=== PATIENT | female | born 1940 | race Caucasian/White ===

== ENCOUNTER → 2021-07-14 12:25 | Outpatient (CLI) | payer MEDICARE, BC, SELFPAY ==
--- NOTE | 2021-07-14 12:28 | DI.MRI.S_ITS ---
PROCEDURE: MR LUMBAR SPINE WO CON INDICATIONS: scoliosis TECHNIQUE: Noncontrast sagittal T1 spin echo and T2 fast echo, sagittal STIR, axial T1 and T2 fast spin echo through the lumbar spine. In cases with scoliosis, additional coronal T2 fast spin echo may be performed. COMPARISON: None. FINDINGS: Image quality: Excellent. Alignment and Curvature: There is moderate dextroconvex thoracolumbar scoliosis. Mild anterolisthesis is seen at the L5-S1 level. Associated pars defects are not seen. Bone Marrow: Marrow is of normal overall signal. No acute vertebral body compression fractures. Spinal Cord: Conus medullaris terminates at the L1 level. Visualized cord demonstrates normal signal and size. Paraspinous Soft Tissues: No paravertebral masses. A horseshoe kidney is incidentally noted, as on series 6, image 19. No significant hydronephrosis is seen. T12-L1: Normal appearance. L1-L2: Zlna-pl-wtddssuz loss of disc height and disc signal can be seen. Mild to moderate disc bulge is seen. Mild to moderate facet hypertrophy is seen. There is moderate left-sided and no right-sided neural foraminal narrowing seen. The central canal is widely patent. L2-L3: Usew-qf-tsbmclgu loss of disc height and disc signal can be seen. Mild generalized disc bulge is seen. Mild facet joint hypertrophy is seen. There is mild left-sided and no significant right-sided neural foraminal narrowing seen. Mild central canal narrowing is seen. L3-L4: Mild loss of disc height is seen. Loss of disc signal is seen. Mild to moderate disc bulge is seen. Mild to moderate facet hypertrophy is seen at this level. There is ivkk-en-kqjeknib right-sided and no significant left-sided neural foraminal narrowing seen. Mild to moderate central canal narrowing is seen. L4-L5: The disc height is well-preserved. Loss of disc signal is seen at this level. Mild to moderate disc bulge is seen. Moderate facet hypertrophy is seen, right worse than left. There is moderate bilateral neural foraminal narrowing seen, right worse than left. Moderate central canal narrowing is seen. L5-S1: Uktx-tm-vrbjywqp loss of disc height and disc signal can be seen. Mild to moderate disc bulge is seen, which is eccentric to the right. The there is moderate to prominent right-sided and at least moderate left-sided facet hypertrophy seen. There is moderate to severe right-sided neural foraminal narrowing, with a degree of compression seen upon the exiting right L5 nerve root. Moderate left-sided neural foraminal narrowing is seen. Moderate central canal narrowing is seen. IMPRESSION: Multiple levels of lumbar spine degenerative change are seen, which are overall worst at the L5-S1 level. Moderate dextroconvex scoliosis. Incidental note is made of: Horseshoe kidney Dictated by: Ramiro Rodrigez M.D. on 07/14/2021 at 12:36 Approved by: Ramiro Rodrigez M.D. on 07/14/2021 at 12:40
== END ==
PROVIDERS: PCP Family Medicine Sports Medicine; Referring Provider Physical Medicine & Rehabilitation; Visit Provider Physical Medicine & Rehabilitation
DX: M47.816 Spondylosis without myelopathy or radiculopathy, lumbar region (principal); M51.36 Other intervertebral disc degeneration, lumbar region; M48.061 Spinal stenosis, lumbar region without neurogenic claudication; M51.37 Other intervertebral disc degeneration, lumbosacral region; M48.07 Spinal stenosis, lumbosacral region; M41.9 Scoliosis, unspecified
CPT/HCPCS: 72148

== ENCOUNTER → 2021-08-01 10:00 | Outpatient (CLI) | payer MEDICARE, BC, SELFPAY ==
[2021-08-01 12:45] LABS: COVID19 -Nasal RAPID Negative (Negative)
== END ==
PROVIDERS: PCP Family Medicine Sports Medicine; Visit Provider Physical Medicine & Rehabilitation
DX: Z20.822 Contact with and (suspected) exposure to COVID-19 (principal)
CPT/HCPCS: 87635; C9803

== ENCOUNTER 2021-08-02 08:57 | Outpatient (CLI) | payer MEDICARE, BC, SELFPAY ==
[2021-08-02] VITALS (8 sets, daily range): BP systolic 132–180; BP diastolic 64–80; PULSE 50–73; RESP 11–25; TEMP 36.1; O2SAT 95–100
--- NOTE | 2021-08-02 08:59 | DI.RAD.S_ITS ---
PROCEDURE: PAIN L/S FACET INJ/BLK 1ST GIOVANA COMPARISON: [facility], RG, XR L-SPINE 2-3V, 06/27/2021, 10:37. [facility], MR, MR LUMBAR SPINE WO CON, 07/14/2021, 12:40. INDICATIONS: SPONDYLOSIS FINDINGS: Fluoroscopic spot filming was performed to verify placement of spinal needles on both sides at the L4-L5 and L5-S1 levels, as labeled on the films. Appropriate location of the needle tips was confirmed by injection of iodinated contrast. IMPRESSION: Intraprocedural examination within normal limits. Dictated by: Ramiro Rodrigez M.D. on 08/02/2021 at 10:11 Approved by: Ramiro Rodrigez M.D. on 08/02/2021 at 10:12
--- NOTE | 2021-08-02 10:00 | P.PCN_ITS ---
Date/Time/Diagnoses Date of procedure: 08/02/21 Time of procedure: 10:00 Pre-procedure diagnosis: 1. FACET ARTHROPATHY 2. AXIAL NECK PAIN Post-procedure diagnosis: same Procedure Notes Procedure: 1. FLUOROSCOPICALLY GUIDED, CONTRAST-CONTROLLED BILATERAL L4/5, L5/S1 FACET JOINT INJECTIONS WITH CONSCIOUS SEDATION. Indications: Marylu is referred by Dr. Hood for Chronic Axial LBP. Physician: Antoine Ferrera Total Fluoroscopy time (seconds): 10 Total sedation minutes: 13 Complications: none Procedure in detail & Post-procedure care: FINDINGS Multilevel Facet Arthropathy with Clinically significant axial LBP DESCRIPTION OF PROCEDURE Fluoroscopically guided, contrast-controlled bilateral L4/5, L5/S1 facet joint injections. Following review of allergy and review of potential side effects and complications, including, but not necessarily limited to, infection, allergic reaction, local tissue breakdown, stroke, temporary or permanent nerve injury, paralysis, and possible , the patient indicated that the patient understood and agreed to proceed. An informed consent document was signed by the patient, witnessed by a nurse, and placed in the patient's chart. Additionally, other treatment options including medications, modalities, and physical therapy were reviewed with the patient. After review of previous anaesthesic history and IV conscious sedation the patient was deemed safe to proceed with today?s procedure with IV conscious sedation as ASA class II designation. Safety time-out was performed to confirm patient ID, procedure to be performed and site of procedure. IV sedation was accomplished with a combination of 2mg of Versed and 50mcg of Fentanyl was administered by the RN after DO order, titrated to patient comfort during the course of the procedure while the patient remained responsive to all verbal commands In the prone position, following sterile prep and drape of the lumbar region, the posterior aspect of the L4/5, L5/S1 facet joints were identified fluoroscopically. The skin was anesthetized via a 25-gauge 1.5inch needle with 1% lidocaine solution into the corresponding facet joints. At this point, a 22- gauge 3.5-inch spinal needle was atraumatically introduced and advanced under fluoroscopic guidance into the corresponding facet joints. Following negative aspiration, injections of approximately 0.2cc of Isovue 200 confirmed in terarticular placement without vascular uptake. The identical procedure was then performed at the L4/5, L5/S1 facet joints on the left. Radiological data, including multiple fluoroscopic views of the lumbosacral spine, reveal a spinal needle at the L4/5, L5/S1 facet joints bilaterally. Subsequent views show flow of contrast material both superiorly and inferiorly within the joint space without vascular or intrathecal uptake. At this point, a total of 0.5cc including a mixture of 0.25cc Marcaine and 0.25cc betamethasone was injected without complication into each of the corresponding facet joints. The patient tolerated the procedure well without signs or symptoms of complications prior to transfer to the recovery area continued monitoring without incident. The patient was then transferred to the recovery area where they were observed for an appropriate period of time after the injection. The patient reported a VAS score of 7 prior to the procedure and a post- procedure VAS of 0. POST OP INSTRUCTIONS The patient was provided a Pain Log to continue to record their response to the target-specific procedure prior to follow-up visit with their referring physician. Additionally, specific post-injection care instructions and a contact number to our office were provided if concerns arise regarding possible complications associated with the procedure are suspected.
[2021-08-02] MEDS: MIDAZOLAM 5 MG/5 ML VIAL IV (10:25)
[2021-08-02] MEDS: fentaNYL 100 MCG/2 ML INJ 50 MCG IV (10:25)
[2021-08-02] MEDS: IOPAMIDOL 15 ML VIAL 3 ML INJ (10:28)
[2021-08-02] MEDS: BUPIVACAINE 0.5% (PF) VIAL 5 ML INJ (10:28)
[2021-08-02] MEDS: BETAMETHASONE 30 MG/5 ML MDV 12 MG INJ (10:29)
[2021-08-02] MEDS: LIDOCAINE 1% 20 ML 10 ML INJ (10:29)
== END 2021-08-02 11:05 | disposition home or self-care (01) ==
LOC: RAD 08:58
PROVIDERS: PCP Family Medicine Sports Medicine; Referring Provider Physical Medicine & Rehabilitation; Visit Provider Physical Medicine & Rehabilitation
DX: M47.816 Spondylosis without myelopathy or radiculopathy, lumbar region (principal); M54.59 Other low back pain; M47.817 Spondylosis without myelopathy or radiculopathy, lumbosacral region
CPT/HCPCS: 64493; 64494; 99152; J0702; J2250; J3010

== ENCOUNTER → 2022-05-15 11:08 | Outpatient (CLI) | payer MEDICARE, BC, SELFPAY ==
[2022-05-15 13:00] LABS: COVID19 -Nasal RAPID Negative (Negative)
== END ==
PROVIDERS: PCP Family Medicine Sports Medicine; Visit Provider Physical Medicine & Rehabilitation
DX: Z20.822 Contact with and (suspected) exposure to COVID-19 (principal)
CPT/HCPCS: 87635; C9803

== ENCOUNTER 2022-05-16 09:35 | Outpatient (CLI) | payer MEDICARE, BC, SELFPAY ==
[2022-05-16] VITALS (8 sets, daily range): BP systolic 129–182; BP diastolic 68–84; PULSE 65–80; RESP 16–24; TEMP 36.2; O2SAT 95–100
--- NOTE | 2022-05-16 09:37 | DI.RAD.S_ITS ---
PROCEDURE: PAIN SI JOINT INJECTION INDICATIONS: SI JOINT DYSFUNTION COMPARISON: [facility], XA, PAIN L/S FACET INJ/BLK 1ST GIOVANA, 08/02/2021, 10:30. FINDINGS: On these intraprocedural images, there is a spinal needle seen overlying the inferior aspect of the right sacroiliac joint. Appropriate position of the tip of the needle was confirmed by injection of a small amount of iodinated contrast. IMPRESSION: Successful sacroiliac joint injection. Dictated by: Ramiro Rodrigez M.D. on 05/16/2022 at 14:08 Approved by: Ramiro Rodrigez M.D. on 05/16/2022 at 14:08
[2022-05-16] MEDS: MIDAZOLAM 2 MG/2 ML VIAL IV (10:44)
[2022-05-16] MEDS: IOPAMIDOL 15 ML VIAL 3 ML INJ (10:47)
[2022-05-16] MEDS: BETAMETHASONE 30 MG/5 ML MDV 12 MG INJ (10:47)
[2022-05-16] MEDS: BUPIVACAINE 0.5% (PF) VIAL 2 ML INJ (10:47)
--- NOTE | 2022-05-16 10:58 | PM.PROC.IR.1 ---
Date/Time/Diagnoses Date of procedure: 05/16/22 Time of procedure: 10:58 Pre-procedure diagnosis: Sacroiliac joint pain/DJD Post-procedure diagnosis: same Procedure Notes Procedure: Fluoroscopically guided contrast controlled right sacroiliac joint injection Indications: Marylu is referred by Dr. Hood for treatment of right sacroiliac joint DJD Physician: Antoine Ferrera Total Fluoroscopy time (seconds): 8 Total sedation minutes: 10 Complications: none Procedure in detail & Post-procedure care: DESCRIPTION OF PROCEDURE Fluoroscopically guided, contrast controlled right sacroiliac joint injection Following review of allergies and review of potential side effects and complications, including, but not necessarily limited to, infection, allergic reaction, local tissue breakdown, temporary as well as permanent nerve injury, paralysis, stroke and possible , the patient indicated that they understood and agreed to proceed. An informed consent was signed by the patient, witnessed by a nurse, and placed in the patient's chart. Additionally, other treatment options including modalities, medications, and physical therapy were reviewed with the patient. After review of previous anaesthesic history and IV conscious sedation the patient was deemed safe to proceed with today?s procedure with IV conscious sedation as ASA class II designation. Safety time-out was performed to confirm patient ID, procedure to be performed and site of procedure. IV sedation was accomplished with a combination of 2mg of Versed was administered by the RN after DO order, titrated to patient comfort during the course of the procedure while the patient remained responsive to all verbal commands In the prone position following sterile prep and drape of the pelvic region, the hyper lucency on in the inferior aspect of the sacroiliac joint was identified fluoroscopically the skin was anesthetized be a 25 gauge 1 eventual with approximately 2 cc of 1% lidocaine solution. At this point, a 22 gauge 3 in spinal needle was atraumatically introduced and advanced under fluoroscopic guidance into the inferior aspect of the right sacroiliac joint. Following negative aspiration, approximately 0.3cc of Isovue-300 was injected confirming intra-articular placement without vascular uptake. Radiographic data, including multiple fluoroscopic views of the pelvis, reveals a spinal needle in the sacroiliac joint hyper lucent zone. Subsequent view show flow contrast tear superiorly and inferiorly within the joint capsule without vascular intrathecal uptake. At this point a total of 1cc of 0.5% Marcaine was combined with 1cc of 6 mg of betamethasone was injected without incident. The procedure tolerated the procedure well without signs or symptoms of complications prior to transfer to the recovery area continued monitoring without incident. The patient was then transferred to the recovery area with a bur observed for an appropriate time after the injection. The patient reverted a vas score of 7 prior to the procedure and post-procedure vas of 1. POSTOP INSTRUCTIONS The patient was provided with a pain like to continue to record the patient's response to the target specific procedure prior to the patient's follow-up visit with the referring physician. Additionally, specific post injection care instructions and a contact number to our office were provided if concerns arise regarding the possible complications associated with procedure are suspected.
== END 2022-05-16 11:14 | disposition home or self-care (01) ==
LOC: RAD 09:37
PROVIDERS: PCP Family Medicine Sports Medicine; Referring Provider Physical Medicine & Rehabilitation; Visit Provider Physical Medicine & Rehabilitation
DX: M53.3 Sacrococcygeal disorders, not elsewhere classified (principal); M46.1 Sacroiliitis, not elsewhere classified
CPT/HCPCS: 27096; 99152; J0702; J2250

== ENCOUNTER 2023-09-04 09:29 | Outpatient (CLI) | payer MEDICARE, BC, SELFPAY ==
[2023-09-04] VITALS (8 sets, daily range): BP systolic 123–190; BP diastolic 62–80; PULSE 66–75; RESP 15–19; TEMP 35.9; O2SAT 94–98
--- NOTE | 2023-09-04 09:30 | DI.RAD.S_ITS ---
PROCEDURE: PAIN SI JOINT INJECTION GIOVANA INDICATIONS: SACROILIAC DISORDER COMPARISON: None. FINDINGS: Fluoroscopic spot filming was performed to verify placement of spinal needles at the sacroiliac joints level(s), as labeled on the films. Appropriate location(s) of the needle tip(s) was confirmed by injection of iodinated contrast. IMPRESSION: Intraoperative fluoroscopy for bilateral SI joint injection. Dictated by: Maddi Rascon M.D. on 09/04/2023 at 17:29 Approved by: Maddi Rascon M.D. on 09/04/2023 at 17:30
[2023-09-04] MEDS: MIDAZOLAM 2 MG/2 ML VIAL IV (10:20)
[2023-09-04] MEDS: BUPIVACAINE 0.5% (PF) 10 ML VIAL 2 ML INJ (10:24)
[2023-09-04] MEDS: iopamidoL 15 ML VIAL 3 ML INJ (10:24)
[2023-09-04] MEDS: BETAMETHASONE 30 MG/5 ML MDV 12 MG INJ (10:24)
--- NOTE | 2023-09-04 10:41 | PM.PROC.IR.1 ---
Date/Time/Diagnoses Date of procedure: 09/04/23 Time of procedure: 10:41 Pre-procedure diagnosis: Sacroiliac joint pain/DJD Post-procedure diagnosis: same Procedure Notes Procedure: Fluoroscopic guided contrast controlled bilateral sacroiliac joint injection Indications: Marylu is referred by Dr. Lopez for treatment of bilateral sacroiliac joint DJD Physician: Antoine Ferrera Total Fluoroscopy time (seconds): 11 Total sedation minutes: 13 Complications: none Procedure in detail & Post-procedure care: Description of procedure Fluoroscopic guided, contrast controlled bilateral sacroiliac joint injection Following review of allergies and review of potential side effects and complications, including, but not necessarily limited to, infection, allergic reaction, local tissue breakdown, temporary as well as permanent nerve injury, paralysis, stroke and possible , the patient indicated that they understood and agreed to proceed. An informed consent was signed by the patient, witnessed by a nurse, and placed in the patient's chart. Additionally, other treatment options including modalities, medications, and physical therapy were reviewed with the patient. After review of previous anaesthesic history and IV conscious sedation the patient was deemed safe to proceed with today?s procedure with IV conscious sedation as ASA class II designation. Safety time-out was performed to confirm patient ID, procedure to be performed and site of procedure. IV sedation was accomplished with a combination of 2mg Versed were administered by the RN after DO order, titrated to patient comfort during the course of the procedure while the patient remained responsive to all verbal commands In the prone position following sterile prep and drape of the pelvic region, the hyper lucency on in the inferior aspect of the sacroiliac joint was identified fluoroscopically the skin was anesthetized be a 25 gauge 1.5 inch needle with approximately 2cc of 1% lidocaine solution. At this point, a 22 gauge 3 in spinal needle was atraumatically introduced and advanced under fluoroscopic guidance into the inferior aspect of the right sacroiliac joint. Following negative aspiration, approximately 0.3cc of Isovue-300 was injected confirming intra-articular placement without vascular uptake. Radiographic data, including multiple fluoroscopic views of the pelvis, reveals a spinal needle in the sacroiliac joint hyper lucent zone. Subsequent view show flow contrast tear superiorly and inferiorly within the joint capsule without vascular intrathecal uptake. At this point a total of 1cc of 0.5% Marcaine was combined with 1cc of 6mg of betamethasone was injected without incident. Attention was then refocused the left sacroiliac joint where the procedure was replicated. The procedure tolerated the procedure well without signs or symptoms of complications prior to transfer to the recovery area continued monitoring without incident. The patient was then transferred to the recovery area with a bur observed for an appropriate time after the injection. The patient reverted a vas score of 7 prior to the procedure and post-procedure vas of 1. Postop instructions The patient was provided with a pain like to continue to record the patient's response to the target specific procedure prior to the patient's follow-up visit with the referring physician. Additionally, specific post injection care instructions and a contact number to our office were provided if concerns arise regarding the possible complications associated with procedure are suspected.
== END 2023-09-04 11:00 | disposition home or self-care (01) ==
LOC: RAD 09:30
PROVIDERS: PCP Family Medicine; Referring Provider Physical Medicine & Rehabilitation; Visit Provider Physical Medicine & Rehabilitation
DX: M53.3 Sacrococcygeal disorders, not elsewhere classified (principal); M46.1 Sacroiliitis, not elsewhere classified
CPT/HCPCS: 27096; 77002; 99152; J0702; J2250